=== PATIENT | male | born 1995 | race Caucasian/White ===

== ENCOUNTER 2020-12-13 19:33 | Emergency (ER) | payer OTHER ==
[2020-12-14] MEDS ORDERED: CEPHALEXIN500 M1 PO (02:16)
[2020-12-14] MEDS ORDERED: BACTRIM DS TAB1 EACH PO (02:16)
[2020-12-14] MEDS ORDERED: NEOSPORIN + P14.2 GM TOP (02:18)
== END 2020-12-14 02:30 | disposition home or self-care (01) ==
LOC: FER 19:33
DX: L02.214 Cutaneous abscess of groin (principal); S80.862A Insect bite (nonvenomous), left lower leg, initial encounter; S80.861A Insect bite (nonvenomous), right lower leg, initial encounter; W57.XXXA Bitten or stung by nonvenomous insect and other nonvenomous arthropods, initial encounter